=== PATIENT | female | born 1960 | race Caucasian/White ===

== ENCOUNTER 2025-05-09 19:06 | Outpatient (BNV) | payer OTHER, SELFPAY | END 2025-05-10 13:13 | PROVIDERS: Admitting Provider Nurse Practitioner Psychiatric/Mental Health; Emergency Provider Emergency Medicine; PCP Nurse Practitioner Family; Visit Provider Radiology Diagnostic Radiology | DX: J01.30 Acute sphenoidal sinusitis, unspecified (principal) | CPT/HCPCS: 70450 ==

== ENCOUNTER 2025-05-09 19:06 | Outpatient (BNV) | payer OTHER, SELFPAY | END 2025-05-11 09:55 | PROVIDERS: Admitting Provider Nurse Practitioner Psychiatric/Mental Health; Emergency Provider Emergency Medicine; PCP Nurse Practitioner Family; Visit Provider Radiology Diagnostic Radiology | DX: J98.09 Other diseases of bronchus, not elsewhere classified (principal) | CPT/HCPCS: 71045 ==

== ENCOUNTER → 2025-05-09 19:06 | Outpatient (BNV) | payer OTHER, SELFPAY | PROVIDERS: Admitting Provider Nurse Practitioner Psychiatric/Mental Health; Emergency Provider Emergency Medicine; PCP Nurse Practitioner Family; Visit Provider Internal Medicine Cardiovascular Disease | DX: Z13.6 Encounter for screening for cardiovascular disorders (principal) | CPT/HCPCS: 93010 ==

== ENCOUNTER → 2025-05-09 19:06 | Outpatient (BNV) | payer OTHER, SELFPAY | PROVIDERS: Admitting Provider Nurse Practitioner Psychiatric/Mental Health; Emergency Provider Emergency Medicine; PCP Nurse Practitioner Family; Visit Provider Internal Medicine | DX: J10.1 Influenza due to other identified influenza virus with other respiratory manifestations (principal) | CPT/HCPCS: 99223; 99231; 99499 ==

== ENCOUNTER → 2025-05-09 19:06 | Outpatient (BNV) | payer OTHER, SELFPAY | PROVIDERS: Admitting Provider Nurse Practitioner Psychiatric/Mental Health; Emergency Provider Emergency Medicine; PCP Nurse Practitioner Family; Visit Provider Psychiatry & Neurology Psychiatry | DX: F33.9 Major depressive disorder, recurrent, unspecified (principal); J10.1 Influenza due to other identified influenza virus with other respiratory manifestations; N39.0 Urinary tract infection, site not specified; C82.90 Follicular lymphoma, unspecified, unspecified site | CPT/HCPCS: 99232 ==

== ENCOUNTER → 2025-05-09 19:06 | Outpatient (BNV) | payer OTHER, SELFPAY | PROVIDERS: Admitting Provider Nurse Practitioner Psychiatric/Mental Health; Emergency Provider Emergency Medicine; PCP Nurse Practitioner Family; Visit Provider Registered Nurse | DX: F33.9 Major depressive disorder, recurrent, unspecified (principal); J10.1 Influenza due to other identified influenza virus with other respiratory manifestations; N39.0 Urinary tract infection, site not specified; C82.90 Follicular lymphoma, unspecified, unspecified site | CPT/HCPCS: 90792; 99232 ==